=== PATIENT | male | born 1995 | race Caucasian/White ===

== ENCOUNTER 2019-05-04 10:14 | Emergency (ER) | payer OTHER ==
[~2019-05-04] VITALS: Ht 180.3 cm; Wt 81.6 kg
[~2019-05-04 10:14] MED LIST: BACTRIM DS 8001 TA1 PO; HYDROCODONE BIT1 T11 PO; KEFLEX500 M1 PO; NAPROSYN500 MG PO; PREDNISONE50 MG PO; ZITHROMAX250 MG PO
[2019-05-04] MEDS ORDERED: AMOXICILLIN875 MG PO (10:31)
[2019-05-04] MEDS ORDERED: EC NAPROSYN500 MG PO (10:31)
== END 2019-05-04 10:45 | disposition home or self-care (01) ==
LOC: ED 10:14
DX: K08.89 Other specified disorders of teeth and supporting structures (principal); Z79.899 Other long term (current) drug therapy; Z79.2 Long term (current) use of antibiotics